=== PATIENT | female | born 1960 | race Caucasian/White ===

== ENCOUNTER → 2023-08-31 11:23 | Outpatient (REF) | payer OTHER, SELFPAY | LOC: DHCBS MAIN 11:23 | PROVIDERS: ATTENDING PHYSICIAN Internal Medicine Cardiovascular Disease; FAMILY PHYSICIAN Family Medicine | DX: I49.3 Ventricular premature depolarization (principal) | CPT/HCPCS: 93306 ==

== ENCOUNTER → 2023-09-28 12:04 | Outpatient (REF) | payer OTHER, SELFPAY | LOC: WDC 12:04 | PROVIDERS: ATTENDING PHYSICIAN Family Medicine | DX: Z12.31 Encounter for screening mammogram for malignant neoplasm of breast (principal) | CPT/HCPCS: 77063; 77067 ==

== ENCOUNTER → 2024-02-08 13:06 | Outpatient (REF) | payer OTHER, SELFPAY | LOC: RAD 13:06 | PROVIDERS: ATTENDING PHYSICIAN Nurse Practitioner Family | DX: G89.29 Other chronic pain (principal); M25.561 Pain in right knee | CPT/HCPCS: 73564 ==

== ENCOUNTER → 2024-02-22 10:33 | Outpatient (REF) | payer OTHER, SELFPAY | LOC: RCS 10:33 | PROVIDERS: ATTENDING PHYSICIAN Nurse Practitioner; FAMILY PHYSICIAN Family Medicine | DX: R53.83 Other fatigue (principal) | CPT/HCPCS: 93306 ==

== ENCOUNTER 2024-08-01 06:17 | Day surgery (SDC) | payer OTHER, SELFPAY | END 2024-08-01 14:54 | disposition home or self-care (01) | LOC: GI 06:17 | PROVIDERS: ATTENDING PHYSICIAN Internal Medicine | DX: Z12.11 Encounter for screening for malignant neoplasm of colon (principal); Z80.0 Family history of malignant neoplasm of digestive organs; D12.0 Benign neoplasm of cecum; D12.3 Benign neoplasm of transverse colon; D12.5 Benign neoplasm of sigmoid colon; D12.2 Benign neoplasm of ascending colon | CPT/HCPCS: 45385; 45381; 45380; 88305 ==

== ENCOUNTER 2024-09-22 06:16 | Day surgery (SDC) | payer OTHER, SELFPAY ==
[2024-09-22 08:29] VITALS: BMI 27.9
[2024-09-22 08:30] VITALS: BMI 27.9
[2024-09-22 08:31] VITALS: BP 144/66
[2024-09-22 10:17] VITALS: BP 118/48
[2024-09-22 10:32] VITALS: BP 123/50
[2024-09-22 10:41] VITALS: BP 136/49
== END 2024-09-22 10:45 | disposition home or self-care (01) ==
LOC: GI 06:16
PROVIDERS: ATTENDING PHYSICIAN Internal Medicine Gastroenterology
DX: K57.30 Diverticulosis of large intestine without perforation or abscess without bleeding (principal); K64.0 First degree hemorrhoids; D12.6 Benign neoplasm of colon, unspecified; D12.2 Benign neoplasm of ascending colon
CPT/HCPCS: 45390; 88305

== ENCOUNTER 2024-09-23 08:35 | Emergency (ER) | payer OTHER, SELFPAY ==
[2024-09-23 08:53] VITALS: BP 136/59; BMI 28.9
[2024-09-23 08:56] VITALS: BP 136/59
[2024-09-23 09:00] VITALS: BP 124/60
--- NOTE | 2024-09-23 09:03 | ED.GENMED ---
History of Present Illness
General
Chief Complaint: Post Operative Problem(s)
Source: patient
Exam Limitations: none
Time Seen by Provider: 09/23/24 08:38
Nursing documentation reviewed up to this point in time: agreed with
History of Present Illness
History of Present Illness:
63-year-old female past ministry of hypertension presenting to the emergency department today with concerns of sharp pain to the right lower quadrant that occurred this morning when stretching doing yoga. Had a colonoscopy yesterday and had a
polypectomy as well as a clip placed by Dr. Haque. Denies any bleeding denies nausea vomiting chest pain shortness of breath.
Past History
Past History
ED Past Medical History: Hypercholesterolemia and Hypothyroidism
ED Past Surgical History: None
Patient has exhibited threatening behavior?: No
PSI?: No
Review of Systems
Review of Systems
Allergies reviewed?: Yes
All Other Systems: ROS reviewed and negative except as documented in HPI and ROS
Phy Exam
Physical Exam
Physical Exam:
GENERAL: Alert , in no apparent distress
EYE: pupils equal and reactive
NECK: Supple, no significant adenopathy.
ENT: o/p clr, mmm.
CARDIAC: Regular rate and rhythm .
LUNGS: Clear breath sounds bilaterally, no acute respiratory distress, no wheezes/rales/rhonchi
ABDOMEN: Soft, without focal tenderness, no r/g, no cvat
NEUROLOGICAL: Alert and oriented, no focal neuro deficits
SKIN: Warm and dry, skin intact.
MUSCULOSKELETAL: No edema, well perfused.
PSYCH: Normal and appropriate interaction.
Course
Orders/Labs/Results
Orders:
Orders
09/23/24 08:40
CT Abd/Pel (IV only)-DH only Urgent
Comment:
Reason For Exam: RLQ pain, scope, polypectomy done
09/23/24 08:52
Complete Blood Count/With Diff Urgent
Comprehensive Metabolic Panel Urgent
09/23/24 10:10
Urinalysis Reflex To Culture Urgent
Date Specimen was Collected: 09/23/24
Time Specimen was Collected: 10:09
Urine Microscopic Reflex Cult Urgent
Urine Culture Urgent
SHANIKA Source: U
Specimen Description:
Date Specimen was Collected: 09/23/24
Time Specimen was Collected: 10:09
09/23/24 10:53
0.9% Sodium Chloride 1000 ml [Nss] 1,000 ml IV BOLUS
09/23/24 11:10
Ketorolac [Toradol] 15 mg IV NOW STA
09/23/24 11:26
Amoxicillin 875 mg/Clav 125 mg [Augmentin 875 mg/125 mg] 1 tablet PO NOW STA
Abnormal Lab Results
09/23/24 09/23/24
08:52 10:10
MCH 32.9 H pg
(27.0-31.0)
Glucose 160 H mg/dl
(70-99)
Ur Occult Blood Reflex 2+ A
(Negative)
Leukocyte Esterase Rfl 3+ A
(Negative)
Urine RBC 11-15 A /HPF
(0-2)
Urine WBC (Reflex) 30-40 A /HPF
(0-5)
Urine Glucose 4+ A
(Negative)
09/23/24 08:52
09/23/24 08:52
Vital Signs
Initial and Last Documented VS:
Initial Vital Signs
Pulse Resp
56 14
09/23/24 08:46 09/23/24 08:46
Last Documented Vital Signs
Temp Pulse Resp BP Pulse Ox
98.5 F 64 22 128/60 99
09/23/24 08:53 09/23/24 11:04 09/23/24 11:04 09/23/24 11:04 09/23/24 08:56
MDM/Problems Addressed
MDM/Problems Addressed:
63-year-old female presenting to the emergency department today with concerns of right lower quadrant pain after stretching this morning. Had a colonoscopy yesterday where she had a polyp removed and a clip placed with Dr. Gambino. Was otherwise
feeling well until stretching this morning felt a very sharp pain also had a bowel movement with a white object coming out. CT scan was obtained to ensure there is no complications. The CT scan did not show anything emergent. This was discussed
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 Patient was given dose of Toradol and fluids with complete resolution of symptoms stable for discharge. Return precautions given. GI also recommending antibiotic coverage.
Patient was started on Augmentin.
*Critical Care Note
Total Time (30-74mins, 75-104mins- exclusive of procedures): Not Applicable
ED Attending Note
-
Portions of this chart may have been created with voice recognition software.� Occasional wrong word or��sound alike� substitutions may have occurred due to the inherent limitations of voice recognition software.
Discharge Plan
Departure
Patient Disposition: Home (Routine Discharge)
Date of Disposition: 09/23/24
Time of Disposition: 13:04
Patient with high blood pressure during this ER visit?: No
Condition: Good
Covid-19: Not Applicable
Discharge Problem:
Abdominal pain
Instructions: Postoperative Pain (DC)
Prescriptions:
New
amoxicillin-pot clavulanate 875-125 mg tablet
1 tab PO BID Qty: 7 0RF
No Action
atorvastatin 20 mg Tablet
20 mg PO QPM
famotidine 40 mg Tablet
40 mg PO QPM
levothyroxine 50 mcg Tablet
50 mcg PO DAILY
escitalopram oxalate [Lexapro] 10 mg Tablet
20 mg PO DAILY
metoprolol succinate 25 mg Tablet Extended Release 24 Hr
25 mg PO DAILY
Jardiance 10 mg tablet
10 mg PO DAILY Qty: 90 5RF
losartan 25 mg tablet
12.5 mg PO DAILY
Referrals:
UNKNOWN - PT DOES,NOT KNOW [Family Provider] -
Activity Restrictions/Additional Instructions:
You came to the emergency department today with concerns of discomfort to your abdomen after polyp removal yesterday. You had a reassuring examination. Please take the prescribed occasions and follow-up closely with your GI doctor. Return for any
worsening, new or concerning symptoms.
Interventions
Interventions:
*Risk Screen - Suicide Last Done: 09/23/24 08:53
*General Assessment Last Done: 09/23/24 08:53
*Neglect/Abuse Screening Last Done: 09/23/24 08:53
*ED- Fall Risk Assessment Last Done: 09/23/24 08:53
*ED COVID-19 Vaccine History Last Done: 09/23/24 08:53
ED-Skin Assessment Last Done: 09/23/24 09:46
Discharge Date and Time
Print Language: LEBANESE
[2024-09-23 09:04] LABS: % Basophils 0.7 % (0-2); % Eosinophils 2.8 % (0-6); % Immature Granulocytes 0.3 % (0-0.5); % Lymphocytes 26.8 % (20.5-51.1); % Monocytes 6.4 % (1.7-9.3); Absolute Basophils 0.1 10^3/uL (0-0.2); Absolute Eosinophils 0.2 10^3/uL (0-0.7); Absolute Monocytes 0.5 10^3/uL (0.1-0.6); Absolute Neutrophils 4.7 10^3/uL (1.4-6.5); Hematocrit 42.2 % (37.0-47.0); Hemoglobin 14.3 g/dL (12.0-16.0); Mean Corp Hgb Conc. 33.9 g/dL (33.0-37.0); Mean Corpuscular Hgb 32.9 pg (27.0-31.0); Mean Platelet Volume 8.8 fL (7.4-10.4); Nucleated Red Blood Cells % 0 %; Platelet Count 233 10^3/uL (130-400); Red Blood Cell Count 4.35 10^6/uL (4.20-5.40); Red Cell Dist. Width 13.1 % (11.5-14.5); White Blood Cell Count 7.5 10^3/uL (4.8-10.8)
[2024-09-23 09:15] LABS: ALT (SGPT) 24 U/L (0-35); AST (SGOT) 25 U/L (14-36); Albumin 4.4 g/dl (3.5-5.0); Alkaline Phosphatase 77 U/L (38-126); Blood Urea Nitrogen 13 mg/dl (7-17); Calcium 9.8 mg/dl (8.4-10.2); Carbon Dioxide 30 mmol/L (22-30); Chloride 107 mmol/L (98-107); Estimated Creatinine Clearance 75 ml/min; Glucose 160 mg/dl (70-99); Potassium 4.5 mmol/L (3.5-5.1); Sodium 143 mmol/L (135-145); Total Bilirubin 0.4 mg/dl (0.2-1.3); Total Protein 7.6 g/dl (6.3-8.2); eGFR > 60.00
[2024-09-23 10:20] LABS: Urine Albumin Negative (Neg - Trace); Urine Bilirubin Negative (Negative); Urine Character Clear (Clear); Urine Color Yellow; Urine Glucose 4+ (Negative); Urine Ketone Negative (Negative); Urine Leukocyte 3+ (Negative); Urine Nitrite Negative (Negative); Urine Occult Blood 2+ (Negative); Urine Urobilinogen Negative (Neg - 1+)
[2024-09-23 10:41] LABS: Urine Squamous Cell >30 /LPF (Few)
[2024-09-23 10:43] LABS: Urine Amorphous Seen; Urine White Cell 30-40 /HPF (0-5)
[2024-09-23 11:04] VITALS: BP 128/60
[2024-09-23] MEDS: NSS 1000 IV (11:08)
[2024-09-23] MEDS: TORADOL 15 MG IV (11:15)
[2024-09-23] MEDS: AUGMENTIN 875 MG/125 MG 1 TABLET PO (12:04)
[2024-09-23 13:15] VITALS: BP 123/59
== END 2024-09-23 13:26 | disposition home or self-care (01) ==
LOC: EMR 08:35
PROVIDERS: Physician Assistant; EMERGENCY PHYSICIAN Emergency Medicine
DX: G89.18 Other acute postprocedural pain (principal); R10.31 Right lower quadrant pain; I10 Essential (primary) hypertension; E78.00 Pure hypercholesterolemia, unspecified; E03.9 Hypothyroidism, unspecified
CPT/HCPCS: 96374; 96361; 99284; 74177; 80053; 81003; 81015; 85025; 87086; Q9967

== ENCOUNTER → 2025-05-08 14:36 | Outpatient (REF) | payer OTHER, SELFPAY | LOC: WDC 14:36 | PROVIDERS: ATTENDING PHYSICIAN Obstetrics & Gynecology Gynecology; FAMILY PHYSICIAN Family Medicine | DX: Z12.31 Encounter for screening mammogram for malignant neoplasm of breast (principal); M85.89 Other specified disorders of bone density and structure, multiple sites; Z12.39 Encounter for other screening for malignant neoplasm of breast | CPT/HCPCS: 77063; 77067; 77080 ==